=== PATIENT | male | born 1980 | race African-American/Black ===

== ENCOUNTER 2021-05-28 15:14 | Emergency (ER) | payer SELFPAY ==
[~2021-05-28] VITALS: Ht 182.9 cm; Wt 140.0 kg
[2021-05-28 16:12] LABS: BASOPHILS % 0.5 % (0.0-2.0); EOSINOPHILS % 2.9 % (0.0-5.0); HEMATOCRIT. 41.3 % (42.0-52.0); HEMOGLOBIN. 13.1 g/dL (14.0-18.0); LYMPHOCYTES % 32.6 % (20.0-50.0); MEAN CORPUSCULAR HEMOGLOBIN 27.2 pg (28.0-32.0); MEAN CORPUSCULAR VOLUME 85.7 fL (80.0-94.0); MEAN PLATELET VOLUME 8.5 fl (7.4-10.4); MONOCYTES % 7.5 % (2.0-8.0); NEUTROPHILS % 56.5 % (40.0-76.0); PLATELET 232 x1000/uL (130-400); RED BLOOD CELL COUNT 4.82 mill/uL (4.7-6.1); RED CELL DISTRIBUTION WIDTH 14.6 % (11.6-14.6)
[2021-05-28 16:18] LABS: CHLORIDE 105 mEq/L (98-107)
[2021-05-28] MEDS ORDERED: IBUPROFEN 600MG TABLET PO ONE (18:30)
[2021-05-28 18:49] VITALS: BP 130/94
== END 2021-05-28 19:03 | disposition home or self-care (01) ==
LOC: ER 15:14
DX: R07.89 Other chest pain (principal)
CPT/HCPCS: 36415; 71045; 80053; 83880; 84484; 85025; 93005; 99285

== ENCOUNTER 2021-07-08 10:05 | Emergency (ER) | payer BC ==
[~2021-07-08] VITALS: Ht 182.9 cm; Wt 137.0 kg
[2021-07-08 10:30] VITALS: BP 167/130
[2021-07-08] MEDS ORDERED: LIDOCAINE 5% PATCH TOP SCH (10:30)
[2021-07-08] MEDS ORDERED: KETOROLAC 60MG/2ML VIAL IM ONE (10:30)
[2021-07-08] MEDS ORDERED: NAPR-681 MT (14:06)
[2021-07-08] MEDS ORDERED: HYDR-4001 MT (14:06)
[2021-07-08] MEDS ORDERED: LIDO1ADH5 TP (14:06)
== END 2021-07-08 14:37 | disposition home or self-care (01) ==
LOC: ER 10:05
DX: M54.50 Low back pain, unspecified (principal); J45.909 Unspecified asthma, uncomplicated; F17.290 Nicotine dependence, other tobacco product, uncomplicated; Z79.899 Other long term (current) drug therapy
CPT/HCPCS: 72100; 96372; 99283; J1885

== ENCOUNTER 2024-05-09 12:27 | Emergency (ER) | payer BC, MEDICAID ==
[~2024-05-09] VITALS: Ht 182.9 cm; Wt 136.1 kg
[~2024-05-09 12:27] MED LIST: HYDR-4001 MT; LIDO1ADH5 TP; NAPR-681 MT
[2024-05-09 12:29] VITALS: O2SAT 99
[2024-05-09 12:47] VITALS: BP 132/53; PULSE 65; RESP 18; TEMP 98.7; O2SAT 98
[2024-05-09] MEDS ORDERED: HYDROCODONE/ACETAMINOPHEN 5/325MG TABLET PO ONE (13:00)
== END 2024-05-09 15:28 | disposition left against medical advice (07) ==
LOC: ER 12:27
DX: R07.89 Other chest pain (principal); R06.02 Shortness of breath; J45.909 Unspecified asthma, uncomplicated; Z79.1 Long term (current) use of non-steroidal anti-inflammatories (NSAID); Z82.49 Family history of ischemic heart disease and other diseases of the circulatory system
CPT/HCPCS: 71045; 93005; 99283